=== PATIENT | male | born 1965 | race Caucasian/White ===

== ENCOUNTER 2023-07-11 10:34 | Inpatient (IN) | payer MEDICARE, MEDICAID ==
[~2023-07-11] VITALS: Ht 175.2 cm; Wt 71.8 kg
[2023-07-11] VITALS (11 sets, daily range): BP systolic 87–140; BP diastolic 40–88
[2023-07-11] MEDS ORDERED: SODIUM CHLORIDE 0.9% 1,000 ML IV ONE ×3 (10:45→14:50)
[2023-07-11] MEDS ORDERED: IOHEXOL 350 MG/ML 100 ML VIAL IV ONE (10:50)
[2023-07-11] MEDS ORDERED: SODIUM CHLORIDE 0.9% 100 ML BAG IV ONE (10:50)
[2023-07-11 11:12] LABS: BASO % 0.1 % (0.0-1.0); EOS # 0.1 10*3/uL (0.0-0.4); EOS % 0.4 % (1.0-4.0); HEMATOCRIT 45.1 % (42.0-52.0); LYMPH # 0.3 10*3/uL (1.3-4.4); LYMPH % 1.7 % (27.0-41.0); MEAN CELL VOLUME 93.2 fl (80.0-94.0); MEAN CORPUSCULAR HGB 28.5 pg (27.0-31.0); MEAN CORPUSCULAR HGB CONC 30.6 g/dl (33.0-37.0); MONO # 1.4 10*3/uL (0.1-1.0); MONO % 9.5 % (3.0-9.0); NEUT # 13.2 10*3/uL (2.3-7.9); NEUT % 87.9 % (47.0-73.0); PLATELET COUNT AUTOMATED 489 10*3/uL (130-400); RED BLOOD COUNT 4.84 10*6/uL (4.50-5.90); RED CELL DISTRI WIDTH 14.6 % (0-14.5)
[2023-07-11 11:24] LABS: ACT PARTIAL THROMBO TIME 36.1 SECONDS (20.0-32.1)
[2023-07-11 11:39] LABS: ALKALINE PHOSPHATASE 183 U/L (46-116); BUN 61 mg/dl (9-23); CHLORIDE 87 mmol/L (98-107); POTASSIUM 3.2 mmol/L (3.4-5.1); SGPT/ALT 26 U/L (5-49); TOTAL PROTEIN 7.2 gm/dL (6.0-8.0)
[2023-07-11 11:42] LABS: LIPASE 942 U/L (12-53)
[2023-07-11] MEDS ORDERED: POTASSIUM CHLORIDE 20 MEQ TAB PO ONE (11:50)
[2023-07-11 12:28] LABS: BILIRUBIN Negative (Negative); BLOOD 2+ (Negative); CLARITY Clear (Clear); COLOR Yellow (Yellow); GLUCOSE 3+ (Negative); KETONE 3+ (Negative); LEUKO ESTERASE Negative (Negative); NITRITE Negative (Negative); SPECIFIC GRAVITY 1.025 (1.001-1.030); UROBILINOGEN 0.2 E.U./dl (0.0-1.0)
[2023-07-11 12:38] LABS: ABG BASE EXCESS -24.3 mmol/L (-2.0-2.0); ARTERIAL BLOOD GAS PH 7.052 (7.35-7.45)
[2023-07-11] MEDS ORDERED: GABAPENTIN600 MG PO (12:40)
[2023-07-11 12:43] LABS: BACTERIA 2+; MUCOUS 1+; WBC 0-2 wbc/hpf (0-5)
[2023-07-11] MEDS ORDERED: PERCOCET 10-321 EACH PO (12:43)
[2023-07-11] MEDS ORDERED: Vitamin D3 PO (12:45)
[2023-07-11] MEDS ORDERED: PIOGLITAZONE HC15 MG PO (12:46)
[2023-07-11] MEDS ORDERED: TRADJENTA5 M1 PO (12:46)
[2023-07-11] MEDS ORDERED: JARDIANCE25 MG PO (12:48)
[2023-07-11] MEDS ORDERED: INSULIN REGULAR, HUMAN 1 UNIT/0.01 ML IV ONE (13:20)
[2023-07-11] MEDS ORDERED: INSULIN REGULAR IN 0.9 % NACL 100 ML IV ONE (13:20)
[2023-07-11] MEDS ORDERED: POTASSIUM CHLORIDE 20 MEQ/100 ML BAG IV PRN (14:45)
[2023-07-11] MEDS ORDERED: POTASSIUM CHLORIDE 20 MEQ TAB PO PRN (14:45)
[2023-07-11] MEDS ORDERED: INSULIN REGULAR IN 0.9 % NACL 100 ML IV SCH (14:45)
[2023-07-11] MEDS ORDERED: Albuterol Sulf/Ipratropium 3 ML VIAL NEB PRN (16:55)
[2023-07-11 17:11] LABS: BUN 42 mg/dl (9-23); CHLORIDE 94 mmol/L (98-107); POTASSIUM 3.1 mmol/L (3.4-5.1)
[2023-07-11] MEDS ORDERED: Cefepime Hydrochloride 2 GM in SODIUM CHLORIDE 0.9% 50 ML IV SCH (18:00)
[2023-07-11] MEDS ORDERED: POTASSIUM CL D5/.45NS SOL. 1,000 ML IV SCH (18:25)
[2023-07-11] MEDS ORDERED: Doxycycline Hyclate 100 MG in SODIUM CHLORIDE 0.9% 250 ML IV SCH (20:00)
[2023-07-11 20:29] LABS: CHLORIDE 102 mmol/L (98-107); POTASSIUM 2.9 mmol/L (3.4-5.1)
[2023-07-11 20:30] LABS: BUN 54 mg/dl (9-23)
[2023-07-12] VITALS: BP 112/52
[2023-07-12 00:38] LABS: CHLORIDE 103 mmol/L (98-107)
[2023-07-12 00:39] LABS: BUN 42 mg/dl (9-23)
[2023-07-12 00:40] LABS: POTASSIUM 4.1 mmol/L (3.4-5.1)
[2023-07-12] MEDS ORDERED: INSULIN REGULAR IN 0.9 % NACL 100 ML IV SCH (00:45)
[2023-07-12 04:00] VITALS: BP 117/57
[2023-07-12 04:52] LABS: ARTERIAL BLOOD GAS PH 7.331 (7.35-7.45)
[2023-07-12 04:53] LABS: ABG BASE EXCESS -10.6 mmol/L (-2.0-2.0)
[2023-07-12 05:25] LABS: ALKALINE PHOSPHATASE 153 U/L (46-116); BUN 45 mg/dl (9-23); CHLORIDE 107 mmol/L (98-107); CHOLESTEROL 230 mg/dL (<200); FREE T4 0.81 ng/dl (0.89-1.76); LDL CHOLESTEROL 147 mg/dL (9-159); SGPT/ALT 25 U/L (5-49); TOTAL PROTEIN 6.4 gm/dL (6.0-8.0); TRIGLYCERIDES 202 mg/dl (<150)
[2023-07-12 06:03] LABS: POTASSIUM 3.1 mmol/L (3.4-5.1)
[2023-07-12] MEDS ORDERED: POTASSIUM PHOSPHATE 40 MMOL in SODIUM CHLORIDE 0.9% 500 ML IV ONE ×2 (06:15→21:30)
[2023-07-12 07:35] LABS: BASO % 0.1 % (0.0-1.0); LYMPH # 0.3 10*3/uL (1.3-4.4); LYMPH % 2.7 % (27.0-41.0); MEAN CELL VOLUME 86.4 fl (80.0-94.0); MEAN CORPUSCULAR HGB 28.9 pg (27.0-31.0); MEAN CORPUSCULAR HGB CONC 33.4 g/dl (33.0-37.0); MEAN PLATELET VOLUME 9.6 fl (9.6-12.3); MONO # 1.3 10*3/uL (0.1-1.0); MONO % 13.2 % (3.0-9.0); NEUT # 8.4 10*3/uL (2.3-7.9); NEUT % 83.7 % (47.0-73.0); PLATELET COUNT AUTOMATED 305 10*3/uL (130-400); RED CELL DISTRI WIDTH 14.5 % (0-14.5)
[2023-07-12 07:45] VITALS: BP 126/55
[2023-07-12] MEDS ORDERED: ALGINATE DRESSING/CME-CELL 4X4 1 EACH BANDAGE T ONE (09:55)
[2023-07-12] MEDS ORDERED: Enoxaparin Sodium 40 MG/0.4 ML SYR SC SCH (10:00)
[2023-07-12 11:30] VITALS: BP 126/77
[2023-07-12 12:38] LABS: CHLORIDE 111 mmol/L (98-107)
[2023-07-12 12:50] LABS: BUN 30 mg/dl (9-23); POTASSIUM 4.1 mmol/L (3.4-5.1)
[2023-07-12 16:03] LABS: BUN 29 mg/dl (9-23); CHLORIDE 111 mmol/L (98-107); POTASSIUM 3.5 mmol/L (3.4-5.1)
[2023-07-12] MEDS ORDERED: IOHEXOL 300 MG/ML 100 ML VIAL IV ONE (16:10)
[2023-07-12] MEDS ORDERED: DIAZEPAM 10 MG/2 ML SYR IV ONE (19:00)
[2023-07-12 20:00] VITALS: BP 140/88
[2023-07-12 20:26] LABS: BUN 23 mg/dl (9-23); CHLORIDE 112 mmol/L (98-107); POTASSIUM 3.1 mmol/L (3.4-5.1)
[2023-07-12] MEDS ORDERED: MORPHINE Sulfate 2 MG/ML SYR IV PRN (23:35)
[2023-07-12] MEDS ORDERED: ACETAMINOPHEN 325 MG TAB PO PRN (23:45)
[2023-07-13] VITALS: BP 144/93
[2023-07-13 00:41] LABS: BUN 21 mg/dl (9-23); CHLORIDE 112 mmol/L (98-107); POTASSIUM 3.8 mmol/L (3.4-5.1)
[2023-07-13 04:00] VITALS: BP 135/79
[2023-07-13 04:39] LABS: BUN 20 mg/dl (9-23); CHLORIDE 114 mmol/L (98-107); POTASSIUM 3.7 mmol/L (3.4-5.1)
[2023-07-13 08:00] VITALS: BP 149/79
[2023-07-13 08:30] LABS: BUN 18 mg/dl (9-23); CHLORIDE 115 mmol/L (98-107); POTASSIUM 3.4 mmol/L (3.4-5.1)
[2023-07-13] MEDS ORDERED: OXYCODONE HCL (IR) 10 MG TABLET PO SCH (09:35)
[2023-07-13] MEDS ORDERED: GABAPENTIN 600 MG TAB PO SCH (10:00)
[2023-07-13] MEDS ORDERED: Acetaminophen/Oxycodone 5 MG/325 MG TABLET PO PRN (10:55)
[2023-07-13] MEDS ORDERED: OXYCODONE HCL (IR) 5 MG TAB PO PRN (10:55)
[2023-07-13] MEDS ORDERED: NORVASC5 MG PO (11:54)
[2023-07-13] MEDS ORDERED: COZAAR50 M1 PO (11:56)
[2023-07-13] MEDS ORDERED: POTASSIUM CHLORIDE IN WATER 100 ML IV SCH (12:00)
[2023-07-13 12:17] LABS: BUN 17 mg/dl (9-23); CHLORIDE 114 mmol/L (98-107); POTASSIUM 3.7 mmol/L (3.4-5.1)
[2023-07-13] MEDS ORDERED: DEXTROSE 10 % IN WATER 250 ML IV PRN (12:35)
[2023-07-13] MEDS ORDERED: Insulin Glargine, Recombinan 1 UNIT/0.01 ML SC ONE (12:35)
[2023-07-13 16:00] VITALS: BP 131/74
[2023-07-13] MEDS ORDERED: INSULIN LISPRO 1 UNIT/0.01 ML SQ SCH (16:30)
[2023-07-13 16:42] LABS: BUN 13 mg/dl (9-23); CHLORIDE 113 mmol/L (98-107)
[2023-07-13] MEDS ORDERED: CALCIUM (TUMS) 500MG PO ONE (17:05)
[2023-07-13] MEDS ORDERED: Pantoprazole Sodium 40 MG TAB PO SCH (17:10)
[2023-07-13 20:00] VITALS: BP 129/85
[2023-07-13 20:14] LABS: BUN 15 mg/dl (9-23); CHLORIDE 114 mmol/L (98-107)
[2023-07-14] VITALS: BP 139/85
[2023-07-14 00:39] LABS: BUN 15 mg/dl (9-23); CHLORIDE 111 mmol/L (98-107); POTASSIUM 3.9 mmol/L (3.4-5.1)
[2023-07-14 04:00] VITALS: BP 142/84
[2023-07-14 05:08] LABS: BUN 13 mg/dl (9-23); CHLORIDE 109 mmol/L (98-107); POTASSIUM 3.8 mmol/L (3.4-5.1)
[2023-07-14 06:15] LABS: HEMATOCRIT 37.1 % (42.0-52.0); MEAN CELL VOLUME 86.9 fl (80.0-94.0); MEAN CORPUSCULAR HGB 28.8 pg (27.0-31.0); MEAN CORPUSCULAR HGB CONC 33.2 g/dl (33.0-37.0); MEAN PLATELET VOLUME 10.4 fl (9.6-12.3); PLATELET COUNT AUTOMATED 228 10*3/uL (130-400); RED BLOOD COUNT 4.27 10*6/uL (4.50-5.90); RED CELL DISTRI WIDTH 15.6 % (0-14.5); WHITE BLOOD COUNT 10.2 10*3/uL (4.8-10.8)
[2023-07-14 06:17] LABS: MANUAL DIFF REFLEX YES
[2023-07-14 07:56] LABS: PLATELET SUFFICIENCY NORMAL (NORMAL); TOTAL CELLS COUNTED 100 #CELLS
[2023-07-14 08:00] VITALS: BP 147/78
[2023-07-14] MEDS ORDERED: CALCIUM (TUMS) 500MG PO PRN ×2 (08:40→15:06)
[2023-07-14] MEDS ORDERED: POTASSIUM PHOSPHATE 40 MMOL in SODIUM CHLORIDE 0.9% 500 ML IV ONE (08:50)
[2023-07-14] MEDS ORDERED: GABAPENTIN 600 MG TAB PO SCH (12:00)
[2023-07-14 12:22] VITALS: BP 123/82
[2023-07-14 16:00] VITALS: BP 117/84
[2023-07-14 20:00] VITALS: BP 137/90
[2023-07-15] VITALS: BP 127/93
[2023-07-15 04:20] LABS: HEMATOCRIT 37.8 % (42.0-52.0); MEAN CELL VOLUME 86.1 fl (80.0-94.0); MEAN CORPUSCULAR HGB 28.7 pg (27.0-31.0); MEAN CORPUSCULAR HGB CONC 33.3 g/dl (33.0-37.0); MEAN PLATELET VOLUME 9.7 fl (9.6-12.3); NUCLEATED RED BLOOD CELL 0.1 % (0.0-0.0); PLATELET COUNT AUTOMATED 281 10*3/uL (130-400); RED BLOOD COUNT 4.39 10*6/uL (4.50-5.90); RED CELL DISTRI WIDTH 15.2 % (0-14.5); WHITE BLOOD COUNT 13.6 10*3/uL (4.8-10.8)
[2023-07-15 04:24] LABS: MANUAL DIFF REFLEX YES
[2023-07-15 04:48] LABS: BUN 12 mg/dl (9-23); CHLORIDE 105 mmol/L (98-107); POTASSIUM 3.9 mmol/L (3.4-5.1)
[2023-07-15 05:00] LABS: PLATELET SUFFICIENCY NORMAL (NORMAL); TOTAL CELLS COUNTED 100 #CELLS
[2023-07-15 05:01] LABS: BURR CELLS FEW
[2023-07-15 08:00] VITALS: BP 126/83
[2023-07-15] MEDS ORDERED: Dicyclomine Hydrochloride 20 MG TAB PO PRN (08:35)
[2023-07-15] MEDS ORDERED: GUAIFENESIN 600 MG TAB ER PO SCH (10:00)
[2023-07-15 12:00] VITALS: BP 108/50
[2023-07-15 16:00] VITALS: BP 124/64
[2023-07-15] MEDS ORDERED: PERCOCET 10-321 EACH PO (16:13)
[2023-07-15] MEDS ORDERED: Humalog SQ (16:13)
== END 2023-07-15 18:05 | DRG 871 ==
LOC: ED 10:34 → ICCU 13:55 → EDHOLD 13:55 → ICCU 14:21
PROVIDERS: Emergency Medicine; Internal Medicine; Student in an Organized Health Care Education/Training Program; ADMIT Student in an Organized Health Care Education/Training Program; ATTEND Student in an Organized Health Care Education/Training Program
DX: A41.9 Sepsis, unspecified organism (principal); E11.10 Type 2 diabetes mellitus with ketoacidosis without coma; N17.0 Acute kidney failure with tubular necrosis; J18.9 Pneumonia, unspecified organism; G93.41 Metabolic encephalopathy; E87.1 Hypo-osmolality and hyponatremia; J98.19 Other pulmonary collapse; C34.31 Malignant neoplasm of lower lobe, right bronchus or lung; E11.22 Type 2 diabetes mellitus with diabetic chronic kidney disease; N18.9 Chronic kidney disease, unspecified; R31.9 Hematuria, unspecified; E87.6 Hypokalemia; D75.839 Thrombocytosis, unspecified; R16.0 Hepatomegaly, not elsewhere classified; E27.9 Disorder of adrenal gland, unspecified; K52.9 Noninfective gastroenteritis and colitis, unspecified; R53.81 Other malaise; R65.20 Severe sepsis without septic shock; K20.90 Esophagitis, unspecified without bleeding; F10.929 Alcohol use, unspecified with intoxication, unspecified; Y90.0 Blood alcohol level of less than 20 mg/100 ml; Z88.8 Allergy status to other drugs, medicaments and biological substances; Z85.118 Personal history of other malignant neoplasm of bronchus and lung

== ENCOUNTER 2024-03-11 14:00 | Emergency (ER) | payer MEDICARE, MEDICAID ==
[~2024-03-11] VITALS: Ht 175.2 cm; Wt 63.5 kg
[~2024-03-11 14:00] MED LIST: COZAAR50 M1 PO; GABAPENTIN600 MG PO; Humalog SQ; JARDIANCE25 MG PO; NORVASC5 MG PO; PERCOCET 10-321 EACH PO; PIOGLITAZONE HC15 MG PO; TRADJENTA5 M1 PO; Vitamin D3 PO
[2024-03-11 14:46] LABS: BASO # 0.1 10*3/uL (0.0-0.1); BASO % 0.9 % (0.0-1.0); EOS # 0.2 10*3/uL (0.0-0.4); EOS % 1.8 % (1.0-4.0); HEMATOCRIT 34.8 % (42.0-52.0); MEAN CELL VOLUME 93.8 fl (80.0-94.0); MEAN CORPUSCULAR HGB 29.1 pg (27.0-31.0); MEAN PLATELET VOLUME 9.1 fl (9.6-12.3); MONO # 1.2 10*3/uL (0.1-1.0); MONO % 12.2 % (3.0-9.0); NEUT # 7.5 10*3/uL (2.3-7.9); NEUT % 76.7 % (47.0-73.0); PLATELET COUNT AUTOMATED 450 10*3/uL (130-400); RED BLOOD COUNT 3.71 10*6/uL (4.50-5.90); RED CELL DISTRI WIDTH 18.1 % (0-14.5); WHITE BLOOD COUNT 9.7 10*3/uL (4.8-10.8)
[2024-03-11 15:06] LABS: BUN 13 mg/dl (9-23); CHLORIDE 102 mmol/L (98-107)
[2024-03-11] MEDS ORDERED: Dexamethasone Sodium Phospha 10 MG/1 ML VIAL IV ONE (15:30)
[2024-03-11] MEDS ORDERED: LEVETIRACETAM IN NACL (ISO-OS) 100 ML IV ONE (15:45)
== END 2024-03-11 17:20 | disposition short-term general hospital (02) ==
LOC: ED 14:00
PROVIDERS: Nurse Practitioner Family
DX: S42.391A Other fracture of shaft of right humerus, initial encounter for closed fracture (principal); G93.9 Disorder of brain, unspecified; E11.9 Type 2 diabetes mellitus without complications; R60.0 Localized edema; Z88.8 Allergy status to other drugs, medicaments and biological substances; Z79.899 Other long term (current) drug therapy; Z79.84 Long term (current) use of oral hypoglycemic drugs; W18.39XA Other fall on same level, initial encounter; Y93.89 Activity, other specified; Y92.89 Other specified places as the place of occurrence of the external cause; Y99.8 Other external cause status